=== PATIENT | female | born 1940 | race Caucasian/White ===

== ENCOUNTER 2021-05-26 21:01 | Emergency (ER) | payer MEDICARE, BC ==
[~2021-05-26] VITALS: Ht 157.5 cm; Wt 62.1 kg
[~2021-05-26 21:01] MED LIST: AMIT-50 PO; ASPI-1265 PO; ESTR1PAT TD; MULT-785 PO; SYN0.088T PO; TEST1.25 TD
[2021-05-26 21:44] VITALS: BP 167/64
--- NOTE | 2021-05-26 21:57 | NUR ---
Pt stated she was feeling better during triage and asymptomatic. denied sob/chx pain. no s/s of distress. advised pt to be seen by MD. pt stated "I can always come back later.'" pt did not wait to be seen. pt educated on the risks of leaving and complications rt to afib
== END 2021-05-26 22:46 | disposition left against medical advice (07) ==
LOC: ER 21:02
DX: R00.2 Palpitations (principal); Z53.21 Procedure and treatment not carried out due to patient leaving prior to being seen by health care provider
CPT/HCPCS: 93005